=== PATIENT | female | born 1935 | race Hispanic/Latino ===

== ENCOUNTER 2017-03-01 11:25 | Day surgery (SDC) | payer MEDICARE ==
[2017-03-01] MEDS ORDERED: NACL BACTERIOSTATIC INFILTRATI ONE (12:36)
[2017-03-01] MEDS ORDERED: XYLOCAINE 1% 20 mL ONE (13:00)
[2017-03-01] MEDS ORDERED: ANCEF/STERILE WATER 2 GM/20 ML IV NR (13:00)
[2017-03-01] MEDS ORDERED: MARCAINE-EPI 0.5%-1:200,000 INFILTRATI ONE ×2 (13:01→14:38)
[2017-03-01] MEDS ORDERED: DECADRON ONE (13:15)
[2017-03-01] MEDS ORDERED: DIPRIVAN 10 MG/ML IV ONE ×2 (13:15→14:38)
[2017-03-01] MEDS ORDERED: SUBLIMAZE ONE (13:15)
[2017-03-01] MEDS ORDERED: ZOFRAN ONE (13:15)
[2017-03-01] MEDS ORDERED: XYLOCAINE MPF 2% ONE (13:15)
[2017-03-01] MEDS ORDERED: NACL 0.9% 1000 ML 1,000 ML ONE (13:23)
--- NOTE | 2017-03-01 13:28 | Anesthesia Consultation ---
Anesthesia Consult and Med Hx Date of service: 03/01/17 - Airway Anesthetic Teeth Evaluation: Dentures ROM Head & Neck: Adequate Mental/Hyoid Distance: Adequate Mallampati Class: Class II Intubation Access Assessment: Probably Good - Pulmonary Exam CTA: Yes - Cardiac Exam Cardiac Exam: RRR - Pre-Operative Health Status ASA Pre-Surgery Classification: ASA3 Proposed Anesthetic Plan: General - Pulmonary Hx Smoking: Yes (CIGARETTES 5 CIGS PD X 63 YRS) Hx Sleep Apnea: No - Cardiovascular System Hx Hypertension: Yes (FOR 20+ YRS, DR. 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
--- NOTE | 2017-03-01 13:29 | Anesthesia Day of Surgery ---
Anesthesia Day of Surgery - Day of Surgery Patient Examined: Yes Patient H&P Reviewed: Yes Patient is NPO: Yes Beta Blockers: Yes Cardiac Clearance: Yes
[2017-03-01] MEDS ORDERED: NACL 0.9% 1000 ML 1,000 ML IV SCH (13:30)
[2017-03-01] MEDS ORDERED: PEPCID IV NR (13:30)
[2017-03-01 13:54] LABS: Hematocrit 44.4 % (30.3-42.9); Hemoglobin 14.2 gm/dl (10.1-14.3); Mean Corpuscular HGB Conc 32 % (30-34); Mean Corpuscular Hemoglobin 31 pg (28-32); Mean Corpuscular Volume 97 fl (79-97); Red Cell Distribution Width 13.9 % (13.2-15.2); White Blood Count 8.8 K/mm3 (4.5-11.0)
[2017-03-01 14:01] LABS: Albumin 3.6 g/dL (3.9-5); Albumin/Globulin Ratio 1.1 %; BUN/Creatinine Ratio 21.53; Bilirubin,Total 0.7 mg/dL (0.1-1.2); Calcium 9.5 mg/dL (8.4-10.2); Chloride 101.4 mmol/L (98-107); Potassium 4.6 mmol/L (3.6-5.0); Total Protein 6.9 g/dL (6.3-8.2)
[2017-03-01] MEDS ORDERED: ePHEDrine SULFATE ONE (14:30)
[2017-03-01] MEDS ORDERED: XYLOCAINE 1% 20 mL INFILTRATI ONE (14:38)
[2017-03-01] MEDS ORDERED: NACL 0.9% IR ONE (14:38)
[2017-03-01 14:42] LABS: Platelet Count 89 K/mm3 (140-440)
[2017-03-01] MEDS ORDERED: NORCO 5/325 PO PRN (15:14)
--- NOTE | 2017-03-01 15:14 | Discharge Summary ---
Short Stay Discharge Plan Activity: advance as tolerated Diet: low fat Wound: per your surgeon's advice Follow up with: UMESH KHAN DO [Primary Care Provider] - 7 Days
--- NOTE | 2017-03-01 15:50 | Post Anesthesia Evaluation ---
- Post Anesthesia Evaluation Patient Participated: Yes Airway Patent: Yes Stable Respiratory Function: Yes Nausea/Vomiting: No Temp > 96.8F: Yes Pain Manageable: Yes Adequeate Hydration: Yes Anesthesia Complications: No
[2017-03-01 16:31] VITALS: BP 147/68
--- NOTE | 2017-03-01 18:49 | Admit Criteria Form ---
Admission Criteria Documentation: AMBULATORY SURGERY EXCEPTION CRITERIA Ambulatory Surgery Exception Criteria ( Place 'X' for any and all applicable criteria): Surgery or procedure performed on ambulatory basis may require inpatient stay for[A] ANY ONE of the following(1)(2)(3)(4)(5)(6)(7)(8)(9): [X] I. A preoperative situation, condition, or finding that warrants inpatient stay as indicated by ANY ONE of the following: [] a) Inpatient care needed because of severity of a disease or condition rather than the surgery (eg, severe cardiac or respiratory disease, severe infection) (15) (16 ) (17) (18) [] b) Emergent procedure (eg, angioplasty for acute ischemia)(19) [] c) Complex surgical approach or situation as indicated by ANY ONE of the following(3): [] i) Open approach needed instead of usual endoscopic, transcatheter, or other less invasive procedure [] ii) Difficult approach because of previous operation [] iii) Airway monitoring required after open neck procedures(20)(21) [] iv) Large mass requiring unusually extensive dissection [] v) Additional complicating feature requiring inpatient care (eg, drain management)(22(23): [X] d) Major surgery in a pt with high anesthetic risk as indicated by ANY ONE of the following (2)(3)(5)(7)(8): [X] i) ASA risk class III or higher (severe systemic disease impairing function) [D] [] ii) Advanced age (eg, older than 85 years)(14)(24) [] iii) Symptomatic heart failure(25) [] iv) Symptomatic asthma or COPD(8)(21) [] v) Morbid obesity with hemodynamic or respiratory problems(20)( 21)(26)(27) [] vi) Obstructive sleep apnea(20)(21) [] vii) Former premature infants who are younger than 60 weeks [] viii) High risk for severe postoperative abnormalities (eg, severe postoperative hypocalcemia after parathyroidectomy for severe hyperparathyroidism)(27)( 28) [] ix) Unstable angina(25) [] e) Drug-related risk requiring inpatient stay as indicated by ANY ONE of the following(5)(10)(14)(32)(33) [] i) Procedure requires discontinuing drugs or other therapy (eg , antiarrhythmic medication, antiseizure medication), which necessitates inpatient observation or treatment.(18)(31) [] ii) Major surgery and high risk drug use as indicated by ANY ONE of the following: [] 1) Active abuse of cocaine or similar drug [] 2) Monoamine oxidase inhibitor use [] 3) Other drug identified as posing risk [] f) Inadequate outpatient care situation as indicated by ANY ONE of the following(5)(10)(14)(32)(33) [] i) Patient lives remote from medical facility and procedure has urgent complication potential, and temporary nearby residence cannot be arranged [] ii) Patient will have postprocedure incapacitation and inadequate assistance at home, or alternative level of care cannot be arranged. [] iii) Patient will have long general anesthesia or procedure side effect resolution time, and competent person to stay with patient on first postoperative night at home or alternative level of care cannot be arranged. []iv) Other inadequate outpatient situation that cannot be handled by other means [] II. A perioperative event, condition, or finding that warrants inpatient stay as indicated by ANY ONE of the following (1)(2)(3): [] a) Inadequate physiologic recovery: cardiovascular, respiratory, or hemodynamic status not normal or near preoperative baseline(18) [] b) Hemodynamic instability [] c) Patient not alert with near normal or baseline mental status [] d) Temperature not normal or as expected and not appropriate for outpatient treatment of condition [] e) Ambulatory or appropriate activity level status not yet achieved post procedure [E](34)(35)(36) [] f) Operative site not appropriate (eg, unexpected or excessive drainage or bleeding) [] g) Postoperative effects not resolved or adequately managed (eg, significant pain or vomiting not appropriate for outpatient or next level of care)(10)(12) [] h) Complicating features requiring inpatient care as indicated by ANY ONE of the following(37): [] i) Severe complications of procedure (eg, bowel injury, airway compromise, vascular injury,severe hemorrhage) [] ii) Extensive (eg, dissection far beyond usual scope of procedure ) or prolonged (eg, 120 minutes beyond usual) surgery needed requiring inpatient postoperative care [] iii) Conversion to an open or complex procedure that requires inpatient care (eg, open vs laparoscopic cholecystectomy, abdominal vs vaginal hysterectomy)(38) [] iv) Comorbid condition or test result identified during or post procedure that requires inpatient care (7) [] v) Malignant hyperthermia(30) [] vi) Other complicating feature requiring inpatient care(22)(23) Inpatient stay may be needed until ALL of the following are present (1)(2)(3)(4) (5)(6)(10)(14)(33)(40): []a) Physiologic recovery: cardiovascular, respiratory, and hemodynamic status normal or near preoperative baseline []b) Hemodynamic stability []c) Patient alert, with near normal or baseline mental status []d) Temperature appropriate: patient afebrile or temperature appropriate for outpt treatment of condition []e) Activity level appropriate: ambulatory or appropriate activity level post procedure []f) Operative site appropriate as indicated by ALL of the following: []i) Site dry or with expected drainage []ii) Any blood noted is as expected for procedure. []g) Postoperative effects resolved or managed as indicated by ALL of the following: []i) Pain management appropriate for outpatient (or next level of) care(10) []ii) Minimal nausea and vomiting: if present, successfully treated with oral medication(12) []iii) Headache, dizziness, or drowsiness (if present) are mild. []h) Voiding status acceptable as indicated by ANY ONE of the following: []i) Voiding spontaneously []ii) No voiding but instructions given for follow-up in 6 to 8 hours []iii) Urinary catheter in place, and instructions given for follow-up []i) Complicating features requiring inpatient care manageable at a lower level of care(37) []j) Comorbid conditions manageable at a lower level of care(37) The original [employer] content created by [employer] has been revised. The portions of the content which have been revised are identified through the use of italic text or in bold, and [facility] [employer] has neither reviewed nor approved the modified material. All other unmodified content is copyright [employer]. Please see references footnoted in the original [employer] edition 2016 Admission Criteria Met: Yes
--- NOTE | 2017-03-01 20:52 | Operative Report ---
PREOPERATIVE DIAGNOSIS: Left breast mass. POSTOPERATIVE DIAGNOSIS: Left breast mass pending final pathology report, probably malignancy. Status post right mastectomy for the same many years back. This patient came to my office a week ago because of a mass that she felt in the left breast and this was seen also on mammogram, so she presents for the above. The examination showed ____ slim, elderly female. She is in no distress. She is very sociable. Head and neck negative. Chest clear. The breast showed surgical absence of the breast on the right side with a mass in the left breast about 2-3 o'clock axis. To me it is very hard, about 3 x 2 x 2 cm. Abdomen soft. The patient was thus taken to operating room where she underwent left breast biopsy and wants to wait on the result. I talked to her family we are going to see her sometime next week. We will go from there. JOB# [id number] BANDAR/CAMILA
--- NOTE | 2017-03-01 22:37 | Discharge Summary ---
HOSPITAL COURSE: This patient was seen in my office. She is an 81-year-old female. She came because of mass in the left breast. She gives a history of mastectomy on the right side many years ago for cancer. So she was thus admitted, where she underwent removal of the mass under general anesthesia. Postop, she did well. She was discharged home. I gave her a prescription for Vicodin for pain and to see me in about 2 weeks to see what we need to do. 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 JOB# [id number] BANDAR/CAMILA
--- NOTE | 2017-03-02 01:00 | Operative Report ---
PREOPERATIVE DIAGNOSIS: Mass, left breast. POSTOPERATIVE DIAGNOSIS: Mass, left breast. SURGERY: Removal of mass, left breast with a margin of about 0.5 to 1 cm. ANESTHESIA: General. BLOOD LOSS: Minimal. FINDINGS: The patient had a very firm mass. To me it is about 2 x 2 x 3 cm located at about 3-4 o'clock axis of the left breast. This was removed via an incision in usual fashion over the area of deeper subcutaneous tissue. I was able to go all around with use of cautery. I was well satisfied, we had good hemostasis. Then, the wound was closed in layers. I used 2-0 Vicryl for the deep and superficial breast tissue and 4-0 for the skin and a bandage. The patient was then transferred to the recovery room in good condition. JOB# [id number] BANDAR/CAMILA
== END 2017-03-01 16:25 | disposition home or self-care (01) ==
LOC: OR 11:25
PROVIDERS: ATTEND Surgery
DX: C50.912 Malignant neoplasm of unspecified site of left female breast (principal); I25.10 Atherosclerotic heart disease of native coronary artery without angina pectoris; I12.9 Hypertensive chronic kidney disease with stage 1 through stage 4 chronic kidney disease, or unspecified chronic kidney disease; N18.3 Chronic kidney disease, stage 3 (moderate); Z72.89 Other problems related to lifestyle; Z87.891 Personal history of nicotine dependence; Z85.3 Personal history of malignant neoplasm of breast
CPT/HCPCS: 19120; 36415; 80053; 85025; 88307; 88361; J0690; J2405; J2704; J3010; J7030; J1100

== ENCOUNTER 2017-04-09 11:05 | Inpatient (IN) | payer MEDICARE ==
[2017-04-04 11:58] LABS: Hematocrit 41.8 % (30.3-42.9); Mean Corpuscular HGB Conc 33 % (30-34); Mean Corpuscular Hemoglobin 31 pg (28-32); Mean Corpuscular Volume 93 fl (79-97); Platelet Count 125 K/mm3 (140-440); Red Blood Count 4.51 M/mm3 (3.65-5.03); Red Cell Distribution Width 13.5 % (13.2-15.2); White Blood Count 9.1 K/mm3 (4.5-11.0)
[2017-04-04 12:19] LABS: Albumin/Globulin Ratio 1.3 %; Bilirubin,Total 0.8 mg/dL (0.1-1.2); Calcium 9.5 mg/dL (8.4-10.2); Chloride 101.4 mmol/L (98-107); Potassium 4.6 mmol/L (3.6-5.0)
--- NOTE | 2017-04-05 12:00 | Admit Criteria Form ---
Admission Criteria Documentation: AMBULATORY SURGERY EXCEPTION CRITERIA Ambulatory Surgery Exception Criteria ( Place 'X' for any and all applicable criteria): Surgery or procedure performed on ambulatory basis may require inpatient stay for[A] ANY ONE of the following(1)(2)(3)(4)(5)(6)(7)(8)(9): [X] I. A preoperative situation, condition, or finding that warrants inpatient stay as indicated by ANY ONE of the following: [X] a) Inpatient care needed because of severity of a disease or condition rather than the surgery (eg, severe cardiac or respiratory disease, severe infection) (15) (16 ) (17) (18) [] b) Emergent procedure (eg, angioplasty for acute ischemia)(19) [] c) Complex surgical approach or situation as indicated by ANY ONE of the following(3): [] i) Open approach needed instead of usual endoscopic, transcatheter, or other less invasive procedure [] ii) Difficult approach because of previous operation [] iii) Airway monitoring required after open neck procedures(20)(21) [] iv) Large mass requiring unusually extensive dissection [] v) Additional complicating feature requiring inpatient care (eg, drain management)(22(23): [] d) Major surgery in a pt with high anesthetic risk as indicated by ANY ONE of the following (2)(3)(5)(7)(8): [] i) ASA risk class III or higher (severe systemic disease impairing function) [D] [] ii) Advanced age (eg, older than 85 years)(14)(24) [] iii) Symptomatic heart failure(25) [] iv) Symptomatic asthma or COPD(8)(21) [] v) Morbid obesity with hemodynamic or respiratory problems(20)( 21)(26)(27) [] vi) Obstructive sleep apnea(20)(21) [] vii) Former premature infants who are younger than 60 weeks [] viii) High risk for severe postoperative abnormalities (eg, severe postoperative hypocalcemia after parathyroidectomy for severe hyperparathyroidism)(27)( 28) [] ix) Unstable angina(25) [] e) Drug-related risk requiring inpatient stay as indicated by ANY ONE of the following(5)(10)(14)(32)(33) [] i) Procedure requires discontinuing drugs or other therapy (eg , antiarrhythmic medication, antiseizure medication), which necessitates inpatient observation or treatment.(18)(31) [] ii) Major surgery and high risk drug use as indicated by ANY ONE of the following: [] 1) Active abuse of cocaine or similar drug [] 2) Monoamine oxidase inhibitor use [] 3) Other drug identified as posing risk [] f) Inadequate outpatient care situation as indicated by ANY ONE of the following(5)(10)(14)(32)(33) [] i) Patient lives remote from medical facility and procedure has urgent complication potential, and temporary nearby residence cannot be arranged [] ii) Patient will have postprocedure incapacitation and inadequate assistance at home, or alternative level of care cannot be arranged. [] iii) Patient will have long general anesthesia or procedure side effect resolution time, and competent person to stay with patient on first postoperative night at home or alternative level of care cannot be arranged. []iv) Other inadequate outpatient situation that cannot be handled by other means [] II. A perioperative event, condition, or finding that warrants inpatient stay as indicated by ANY ONE of the following (1)(2)(3): [] a) Inadequate physiologic recovery: cardiovascular, respiratory, or hemodynamic status not normal or near preoperative baseline(18) [] b) Hemodynamic instability [] c) Patient not alert with near normal or baseline mental status [] d) Temperature not normal or as expected and not appropriate for outpatient treatment of condition [] e) Ambulatory or appropriate activity level status not yet achieved post procedure [E](34)(35)(36) [] f) Operative site not appropriate (eg, unexpected or excessive drainage or bleeding) [] g) Postoperative effects not resolved or adequately managed (eg, significant pain or vomiting not appropriate for outpatient or next level of care)(10)(12) [] h) Complicating features requiring inpatient care as indicated by ANY ONE of the following(37): [] i) Severe complications of procedure (eg, bowel injury, airway compromise, vascular injury,severe hemorrhage) [] ii) Extensive (eg, dissection far beyond usual scope of procedure ) or prolonged (eg, 120 minutes beyond usual) surgery needed requiring inpatient postoperative care [] iii) Conversion to an open or complex procedure that requires inpatient care (eg, open vs laparoscopic cholecystectomy, abdominal vs vaginal hysterectomy)(38) [] iv) Comorbid condition or test result identified during or post procedure that requires inpatient care (7) [] v) Malignant hyperthermia(30) [] vi) Other complicating feature requiring inpatient care(22)(23) Inpatient stay may be needed until ALL of the following are present (1)(2)(3)(4) (5)(6)(10)(14)(33)(40): []a) Physiologic recovery: cardiovascular, respiratory, and hemodynamic status normal or near preoperative baseline []b) Hemodynamic stability []c) Patient alert, with near normal or baseline mental status []d) Temperature appropriate: patient afebrile or temperature appropriate for outpt treatment of condition []e) Activity level appropriate: ambulatory or appropriate activity level post procedure []f) Operative site appropriate as indicated by ALL of the following: []i) Site dry or with expected drainage []ii) Any blood noted is as expected for procedure. []g) Postoperative effects resolved or managed as indicated by ALL of the following: []i) Pain management appropriate for outpatient (or next level of) care(10) []ii) Minimal nausea and vomiting: if present, successfully treated with oral medication(12) []iii) Headache, dizziness, or drowsiness (if present) are mild. []h) Voiding status acceptable as indicated by ANY ONE of the following: []i) Voiding spontaneously []ii) No voiding but instructions given for follow-up in 6 to 8 hours []iii) Urinary catheter in place, and instructions given for follow-up []i) Complicating features requiring inpatient care manageable at a lower level of care(37) []j) Comorbid conditions manageable at a lower level of care(37) The original [employer] content created by [employer] has been revised. The portions of the content which have been revised are identified through the use of italic text or in bold, and [employer] has neither reviewed nor approved the modified material. All other unmodified content is copyright [employer]. Please see references footnoted in the original [employer] edition 2016 Admission Criteria Met: Yes
[~2017-04-09 11:05] MED LIST: DECADRON ONE; DILAUDID ONE; DIPRIVAN 10 MG/ML IV ONE; SUBLIMAZE ONE; XYLOCAINE MPF 2% ONE; ZOFRAN ONE
[2017-04-09] MEDS ORDERED: ZEMURON IV ONE (11:45)
[2017-04-09] MEDS ORDERED: SUBLIMAZE IV PRN (12:02)
[2017-04-09] MEDS ORDERED: NACL 0.9% 1000 ML 1,000 ML ONE ×2 (12:05→14:49)
[2017-04-09] MEDS ORDERED: MARCAINE-EPI/PF 0.5%-1:200,000 INFILTRATI ONE (12:40)
[2017-04-09] MEDS ORDERED: DECADRON ONE ×2 (12:41→14:39)
[2017-04-09] MEDS ORDERED: MARCAINE-EPI/PF 0.25%-1:200,000 INFILTRATI ONE (12:41)
[2017-04-09] MEDS ORDERED: NACL 0.9% 1000 ML 1,000 ML IV SCH (13:00)
[2017-04-09] MEDS ORDERED: ANCEF/STERILE WATER 2 GM/20 ML IV NR (13:00)
[2017-04-09] MEDS ORDERED: VERSED IV NR (13:00)
[2017-04-09] MEDS ORDERED: PEPCID IV NR (13:00)
--- NOTE | 2017-04-09 13:05 | Anesthesia Consultation ---
Anesthesia Consult and Med Hx - Airway Anesthetic Teeth Evaluation: Dentures (upper dentures; loose tooth bottom front) ROM Head & Neck: Adequate Mental/Hyoid Distance: Adequate Mallampati Class: Class III Intubation Access Assessment: Possibly Difficult - Pulmonary Exam CTA: Yes - Cardiac Exam Cardiac Exam: RRR - Pre-Operative Health Status ASA Pre-Surgery Classification: ASA3 Proposed Anesthetic Plan: General - Pulmonary Hx Smoking: Yes (CIGARETTES 5 CIGS PD X 63 YRS) Hx Sleep Apnea: No - Cardiovascular System Hx Hypertension: Yes (FOR 20+ YRS, DR. 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
--- NOTE | 2017-04-09 13:06 | Anesthesia Day of Surgery ---
Anesthesia Day of Surgery - Day of Surgery Patient Examined: Yes Patient H&P Reviewed: Yes Patient is NPO: Yes Beta Blockers: Yes (takes at nite - took last night)
[2017-04-09] MEDS ORDERED: AMIDATE IV ONE (13:25)
[2017-04-09] MEDS ORDERED: NEO SYNEPHRINE ONE (14:04)
[2017-04-09] MEDS ORDERED: NACL 0.9% IR ONE (14:16)
[2017-04-09] MEDS ORDERED: ZOFRAN ONE (14:39)
[2017-04-09] MEDS ORDERED: DILAUDID IV PRN (14:54)
[2017-04-09] MEDS ORDERED: ZOFRAN IV PRN (15:00)
[2017-04-09] MEDS ORDERED: VERSED ONE (15:19)
--- NOTE | 2017-04-09 15:42 | Post Anesthesia Evaluation ---
- Post Anesthesia Evaluation Patient Participated: Yes Airway Patent: Yes Stable Respiratory Function: Yes Nausea/Vomiting: No Temp > 96.8F: Yes Pain Manageable: Yes Adequeate Hydration: Yes Anesthesia Complications: No Block Receding Appropriately: Not Applicable Patient on Ventilator: No
[2017-04-09] MEDS: D5W/0.45% NACL/KCL 20 MEQ 20 MEQ/1,000 ML BAG IV SCH (20:06)
[2017-04-09] MEDS: ANCEF/NS 1 GM/50 ML 1 GM/50 ML BAG IV SCH (21:06)
[2017-04-09] MEDS ORDERED: HEPARIN SUB-Q SCH (22:00)
[2017-04-09] MEDS ORDERED: AMBIEN PO PRN (22:05)
--- NOTE | 2017-04-10 01:07 | Operative Report ---
PREOPERATIVE DIAGNOSIS: Adenocarcinoma of the breast on the left side, status post cancer on the right side with mastectomy. POSTOPERATIVE DIAGNOSIS: Adenocarcinoma of the breast on the left side, status post cancer on the right side with mastectomy. SURGERY: Left modified radical mastectomy with lymph node dissection. The lymph nodes in the axilla looked suspicious to me that is why I did the lymph node dissection. ANESTHESIA: General. BLOOD LOSS: Minimal. FINDINGS: The patient had multiple lymph nodes in the axillary area. The largest measured about 2 x 2 cm, smallest about 20 x 1 cm and rest of the examination did not reveal anything specific. This patient had a biopsy for a mass in the left breast about 3 weeks ago. DESCRIPTION OF PROCEDURE: With the patient in supine position, prepped and draped in the usual fashion, I made a spindle-shaped incision around the areola on the left breast from the angle of the axilla all the way into the medial inferior aspect and then 2 flaps were raised of skin and small ____ all around and then the breast was removed in toto using electrocautery, including the fascia on the left pectoralis muscle area. This was done all the way superiorly and into the axilla. I could feel multiple fairly firm lymph nodes in the area. These were dissected free all the way superiorly. One lymph node was stuck to the wall. I took it as a separate specimen. I was very much satisfied. I left a drain, Emmanuel-Li, in the left axilla through a small stab wound incision inferiorly and then the wound was closed interruptedly using for that purpose 3-0 Vicryl and 4-0 for the skin and Steri-Strips. The patient was then transferred to the Recovery Room in good condition after applying a bandage in the usual fashion. I talked to the family, going to keep her in the hospital till tomorrow may be, waiting ____ pathologist to come out. JOB# [id number] BANDAR/CAMILA
[2017-04-10] MEDS: ANCEF/NS 1 GM/50 ML 1 GM/50 ML BAG IV SCH ×2 (04:02→12:29)
[2017-04-10] MEDS: D5W/0.45% NACL/KCL 20 MEQ 20 MEQ/1,000 ML BAG IV SCH (04:05)
[2017-04-10 12:30] VITALS: BP 146/60
--- NOTE | 2017-04-10 19:43 | Discharge Summary ---
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 This patient had cancer on the right breast many years back. She had a lump on the left side at this time and biopsy showed the above. PHYSICAL EXAMINATION: GENERAL: Showed a well-preserved white female. She is in no distress. She is very sociable. HEAD AND NECK: Negative. CHEST: Clear. HEART: Sounds normal. BREASTS: Showed surgical absence of the right breast. The left breast showed scar from recent surgery. ABDOMEN: Soft and benign. HOSPITAL COURSE: The patient was thus admitted where she underwent left modified radical mastectomy. I did feel some lymph nodes in the axillary area. This prompted me to take the entire lymph nodes in the axilla. She did well. Postop, she was doing fine. The drainage is very minimal. At this point, I believe she may go home to see me in office in about 10 days, to call me definitely in 2 days to tell me how she is doing. She may take the drain herself, to call me otherwise. JOB# [id number] BANDAR/CAMILA
--- NOTE | 2017-04-11 17:11 | Progress Note ---
Subjective Date of service: 04/11/17 Interval history: 1st POD after bilateral mastectomy Patient is in the bed, comfortable. Pain is well controlled with pain meds. Ambulated well. No nausea or vomiting. No anesthesia complications Objective - Labs CBC & Chem 7: 04/04/17 11:41 04/04/17 11:26
== END 2017-04-10 15:00 | disposition home or self-care (01) | DRG 580 ==
LOC: OR 11:05 → 2B-SURG 15:15 → OBSVTOIN 04-10 09:13
PROVIDERS: ADMIT Surgery; ATTEND Surgery
PROC: 0HTU0ZZ Resection of Left Breast, Open Approach (ICD-10-PCS; principal; 2017-04-09)
PROC: 07B60ZX Excision of Left Axillary Lymphatic, Open Approach, Diagnostic (ICD-10-PCS; 2017-04-09)
DX: C50.912 Malignant neoplasm of unspecified site of left female breast (principal); I50.32 Chronic diastolic (congestive) heart failure; I13.0 Hypertensive heart and chronic kidney disease with heart failure and stage 1 through stage 4 chronic kidney disease, or unspecified chronic kidney disease; Z85.3 Personal history of malignant neoplasm of breast; F17.200 Nicotine dependence, unspecified, uncomplicated; I25.10 Atherosclerotic heart disease of native coronary artery without angina pectoris; N18.3 Chronic kidney disease, stage 3 (moderate); Z72.89 Other problems related to lifestyle; Z90.11 Acquired absence of right breast and nipple
CPT/HCPCS: 36415; 80053; 85027; 88305; 88307; 88309; 94760; G0378; J0690; J1100; J1170; J1644; J2250; J2370; J2405; J2704; J3010; J7030

== ENCOUNTER 2017-04-26 09:15 | Emergency (ER) | payer MEDICARE ==
--- NOTE | 2017-04-26 14:30 | Emergency Department Report ---
HPI - HPI HPI: The patient is a 81-year-old female 3 weeks status post left breast mastectomy, who presents for evaluation of swelling to the left breast. Patient states that her swelling occurred one day ago, has been constant since, moderate in severity, associated with minimal mild left-sided chest pain, tight in quality, exacerbated with movement, also constant for the past one day. The patient denies fever, trauma to the chest, cough, dyspnea, syncope, hemoptysis, unilateral leg swelling, recent immobilization, history of DVT or PE, recent cancer, blood thinner use. 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 BRINK- [employer]) Hx HIV: No - Surgical History Past Surgical History?: Yes Additional Surgical History: Breast surgery - Social History Smoking Status: Current Every Day Smoker Substance Use Type: Alcohol <LIYAH LAWRENCE - Last Filed: 04/26/17 16:38> <DEIRDRE DOMINGUEZ - Last Filed: 04/26/17 17:09> - Medications Home Medications: Home Medications Medication Instructions Recorded Confirmed Last Taken Type Aspirin [Adult Low Dose Aspirin EC] 81 mg PO QDAY 02/28/17 04/03/17 04/02/17 History Atenolol [Tenormin] 25 mg PO DAILY 02/28/17 04/09/17 04/08/17 20:00 History Atorvastatin Calcium [Lipitor] 20 mg PO QHS 02/28/17 04/09/17 04/08/17 20:00 History Ca/D3/Mag Ox/Zinc/Wood Stainer/Oziel/Bor 1 each PO QDAY 02/28/17 04/09/17 04/08/17 09:00 History [Calcium 600+D3 Plus Caplet] Cholecalciferol Vit D3 [Vitamin D3] 1,000 unit PO QDAY 02/28/17 04/09/17 09:00 History Multivitamin Tab [Multiple Vitamin 1 each PO QDAY 02/28/17 04/09/17 04/08/17 09: 00 History TAB (Theragran)] Ramipril 10 mg PO QDAY 02/28/17 04/09/17 04/08/17 09:00 History HYDROcodone/ACETAMINOPHEN [Vicodin 1 tab PO Q6HR PRN #20 tablet 03/01/17 Unknown Rx HP 10-300 mg TAB] Letrozole (Nf) [Femara (Nf)] 2.5 mg PO QDAY 04/04/17 04/09/17 04/09/17 06:00 History ED Review of Systems ROS: Stated complaint: LT BREAST SWELLING Other details as noted in HPI Constitutional: denies: fever ENT: denies: throat or neck pain Respiratory: denies: cough, shortness of breath Cardiovascular: denies: chest pain Endocrine: denies unexplained weight loss or gain Gastrointestinal: denies: abdominal pain, nausea Genitourinary: denies: dysuria Musculoskeletal: reports left chest wall swelling denies: leg swelling Skin: denies: rash Neurological: denies: headache Hematological/Lymphatic: denies: easy bleeding or easy bruising Psych: denies sadness or hopelessness <LIYAH LAWRENCE - Last Filed: 04/26/17 16:38> ROS: Stated complaint: LT BREAST SWELLING Other details as noted in HPI <DEIRDRE DOMINGUEZ - Last Filed: 04/26/17 17:09> Physical Exam - Physical Exam Vital Signs: Vital Signs 04/26/17 09:28 Temperature 98.6 F Pulse Rate 78 Respiratory 20 Rate Blood Pressure 160/78 O2 Sat by Pulse 100 Oximetry Physical Exam: General: well-nourished, well-developed, no acute distress Head: Normocephalic, atraumatic Eyes: normal sclera ENT: Mucous membranes are pink and moist Neck: trachea midline, neck supple, No neck stiffness, no cervical adenopathy Respiratory: Breath sounds equal bilaterally, no wheezing, rales, or rhonchi Cardio: S1 and S2 present, no murmurs, rubs, gallops, capillary refill is brisk Abdomen: Normoactive bowel sounds, soft abdomen, no rigidity, no guarding or rebound tenderness Chest WALL/Back: Swelling and tenderness to palpation of the left lateral chest wall is present, mild ecchymosis present as well, no crepitus, erythema, or fluctuance, no sign of abscess or cellulitis, no CVA tenderness with percussion Musc: No pitting edema Skin: No rash Neuro: no facial drooping, normal speech Psych: Normal affect <LIYAH LAWRENCE P - Last Filed: 04/26/17 16:38> - Physical Exam Vital Signs: Vital Signs 04/26/17 04/26/17 04/26/17 09:28 15:58 16:02 Temperature 98.6 F Pulse Rate 78 Pulse Rate [ Intra-Procedure ] Pulse Rate [ Post-Procedure] Pulse Rate [Pre 60 -Procedure] Respiratory 20 18 Rate Respiratory Rate [Intra- Procedure] Respiratory Rate [Post- Procedure] Respiratory 18 Rate [Pre- Procedure] Blood Pressure 160/78 Blood Pressure [Intra- Procedure] Blood Pressure [Post-Procedure ] Blood Pressure 107/60 [Pre-Procedure] O2 Sat by Pulse 100 Oximetry O2 Sat by Pulse Oximetry [ Intra-Procedure ] O2 Sat by Pulse Oximetry [Post -Procedure] O2 Sat by Pulse 99 Oximetry [Pre- Procedure] 04/26/17 04/26/17 04/26/17 16:03 16:09 16:12 Temperature Pulse Rate Pulse Rate [ 60 61 61 Intra-Procedure ] Pulse Rate [ Post-Procedure] Pulse Rate [Pre 60 -Procedure] Respiratory Rate Respiratory 16 16 16 Rate [Intra- Procedure] Respiratory Rate [Post- Procedure] Respiratory 18 Rate [Pre- Procedure] Blood Pressure Blood Pressure 98/42 110/39 105/45 [Intra- Procedure] Blood Pressure [Post-Procedure ] Blood Pressure 107/60 [Pre-Procedure] O2 Sat by Pulse Oximetry O2 Sat by Pulse 98 98 99 Oximetry [ Intra-Procedure ] O2 Sat by Pulse Oximetry [Post -Procedure] O2 Sat by Pulse 99 Oximetry [Pre- Procedure] 04/26/17 04/26/17 04/26/17 16:15 16:21 16:24 Temperature Pulse Rate Pulse Rate [ 61 68 Intra-Procedure ] Pulse Rate [ 63 Post-Procedure] Pulse Rate [Pre -Procedure] Respiratory Rate Respiratory 16 18 Rate [Intra- Procedure] Respiratory 18 Rate [Post- Procedure] Respiratory Rate [Pre- Procedure] Blood Pressure Blood Pressure 139/55 125/52 [Intra- Procedure] Blood Pressure 135/67 [Post-Procedure ] Blood Pressure [Pre-Procedure] O2 Sat by Pulse Oximetry O2 Sat by Pulse 99 99 Oximetry [ Intra-Procedure ] O2 Sat by Pulse 99 Oximetry [Post -Procedure] O2 Sat by Pulse Oximetry [Pre- Procedure] <DEIRDRE DOMINGUEZ C - Last Filed: 04/26/17 17:09> ED Course Vital Signs 04/26/17 09:28 Temperature 98.6 F Pulse Rate 78 Respiratory 20 Rate Blood Pressure 160/78 O2 Sat by Pulse 100 Oximetry <LIYAH LAWRENCE P - Last Filed: 04/26/17 16:38> Vital Signs 04/26/17 04/26/17 04/26/17 09:28 15:58 16:02 Temperature 98.6 F Pulse Rate 78 Pulse Rate [ Intra-Procedure ] Pulse Rate [ Post-Procedure] Pulse Rate [Pre 60 -Procedure] Respiratory 20 18 Rate Respiratory Rate [Intra- Procedure] Respiratory Rate [Post- Procedure] Respiratory 18 Rate [Pre- Procedure] Blood Pressure 160/78 Blood Pressure [Intra- Procedure] Blood Pressure [Post-Procedure ] Blood Pressure 107/60 [Pre-Procedure] O2 Sat by Pulse 100 Oximetry O2 Sat by Pulse Oximetry [ Intra-Procedure ] O2 Sat by Pulse Oximetry [Post -Procedure] O2 Sat by Pulse 99 Oximetry [Pre- Procedure] 04/26/17 04/26/17 04/26/17 16:03 16:09 16:12 Temperature Pulse Rate Pulse Rate [ 60 61 61 Intra-Procedure ] Pulse Rate [ Post-Procedure] Pulse Rate [Pre 60 -Procedure] Respiratory Rate Respiratory 16 16 16 Rate [Intra- Procedure] Respiratory Rate [Post- Procedure] Respiratory 18 Rate [Pre- Procedure] Blood Pressure Blood Pressure 98/42 110/39 105/45 [Intra- Procedure] Blood Pressure [Post-Procedure ] Blood Pressure 107/60 [Pre-Procedure] O2 Sat by Pulse Oximetry O2 Sat by Pulse 98 98 99 Oximetry [ Intra-Procedure ] O2 Sat by Pulse Oximetry [Post -Procedure] O2 Sat by Pulse 99 Oximetry [Pre- Procedure] 04/26/17 04/26/17 04/26/17 16:15 16:21 16:24 Temperature Pulse Rate Pulse Rate [ 61 68 Intra-Procedure ] Pulse Rate [ 63 Post-Procedure] Pulse Rate [Pre -Procedure] Respiratory Rate Respiratory 16 18 Rate [Intra- Procedure] Respiratory 18 Rate [Post- Procedure] Respiratory Rate [Pre- Procedure] Blood Pressure Blood Pressure 139/55 125/52 [Intra- Procedure] Blood Pressure 135/67 [Post-Procedure ] Blood Pressure [Pre-Procedure] O2 Sat by Pulse Oximetry O2 Sat by Pulse 99 99 Oximetry [ Intra-Procedure ] O2 Sat by Pulse 99 Oximetry [Post -Procedure] O2 Sat by Pulse Oximetry [Pre- Procedure] <DEIRDRE DOMINGUEZ - Last Filed: 04/26/17 17:09> ED Medical Decision Making - Lab Data Result diagrams: 04/26/17 15:29 04/26/17 15:29 - Medical Decision Making The patient was seen and examined by myself. The patient is placed on a threat monitoring analyst and continuous pulse ox. On initial evaluation, the patient was found to be in no distress. Evaluation orders were placed. The patient is given IV fentanyl for her pain. Dr. Greene presents to the ER and evaluates the patient. Lab results were unremarkable. CT scan the chest is ordered. The on-call interventional radiologist Dr. Castanon contacted and he agrees to place CT- guided drainage catheter to left breast seroma. The patient signed out to the oncoming 4 PM ED physician who agrees to arrange ultimate disposition. <LIYAH LAWRENCE - Last Filed: 04/26/17 16:38> - Lab Data Result diagrams: 04/26/17 15:29 04/26/17 15:29 - Medical Decision Making 5:03pm She has returned from IR, drain has been placed, with brown serous fluid in bag. Patient agrees she is stable to discharge home and follow-up with her general surgeon. <DEIRDRE DOMINGUEZ - Last Filed: 04/26/17 17:09> Critical care attestation.: If time is entered above; I have spent that time in minutes in the direct care of this critically ill patient, excluding procedure time. <LIYAH LAWRENCE - Last Filed: 04/26/17 16:38> Critical Care Time: No Critical care attestation.: If time is entered above; I have spent that time in minutes in the direct care of this critically ill patient, excluding procedure time. <DEIRDRE DOMINGUEZ - Last Filed: 04/26/17 17:09> ED Disposition Is pt being admited?: No Does the pt Need Aspirin: No Time of Disposition: 14:30 <LIYAH LAWRENCE - Last Filed: 04/26/17 16:38> Is pt being admited?: No Does the pt Need Aspirin: No <DEIRDRE DOMINGUEZ - Last Filed: 04/26/17 17:09> Clinical Impression: Seroma Disposition: DC-01 TO HOME OR SELFCARE Condition: Stable Instructions: Chest Pain (ED) Referrals: UMESH KHAN DO [Primary Care Provider] - 24 Hours NILSON MALONE MD [Staff Physician] - 2-3 Days
--- NOTE | 2017-04-26 15:40 | Event Note ---
Date: 04/26/17 This is an 81-year-old female who underwent left mastectomy for metastatic breast carcinoma approximately 2 weeks ago. She has since developed a fluid collection in the region, presumably a seroma. No fevers or chills of been reported. Image guided drainage was requested by the operating surgeon. I saw and examined the patient and explained the details of the procedure. Informed consent was signed
[2017-04-26] MEDS ORDERED: VERSED IV ONE (15:49)
[2017-04-26] MEDS ORDERED: SUBLIMAZE ONE (15:50)
[2017-04-26 15:55] LABS: BUN/Creatinine Ratio 21.81; Calcium 9.2 mg/dL (8.4-10.2); Chloride 100.9 mmol/L (98-107); Potassium 4.6 mmol/L (3.6-5.0)
[2017-04-26] MEDS: VERSED IV NR ×2 (16:02→16:36)
[2017-04-26] MEDS: SUBLIMAZE IV ONE (16:02)
[2017-04-26 16:03] LABS: Basophils % (Auto) 0.4 % (0.0-1.8); Eosinophils % (Auto) 2.8 % (0.0-4.3); Hemoglobin 11.2 gm/dl (10.1-14.3); Mean Corpuscular HGB Conc 32 % (30-34); Mean Corpuscular Hemoglobin 31 pg (28-32); Mean Corpuscular Volume 97 fl (79-97); Platelet Count 180 K/mm3 (140-440); Red Blood Count 3.61 M/mm3 (3.65-5.03); Red Cell Distribution Width 15.7 % (13.2-15.2); White Blood Count 9.6 K/mm3 (4.5-11.0)
--- NOTE | 2017-04-26 16:32 | Operative Report ---
Operative Report Operative Report: Procedure: CT-guided drainage of a left mastectomy bed seroma Date of Procedure: 04/26/2017 History/Indication: 81-year-old female with development of a postoperative seroma in a left mastectomy bed Physician: Kayla Mcfadden MD Technique/Procedural Details: The patient was placed in the supine position on the CT scanner. A marking grid was used to pick an appropriate site for drain placement. After limited imaging of the area of interest, the patient was prepped and draped in the usual sterile fashion. A timeout was performed. Local anesthetic was administered. An 18-gauge trocar needle was advanced into the seroma under CT guidance. This was exchanged for a 6 [place] tissue dilator over an Amplatz wire. Repeat imaging was performed. A tissue dilator was then exchanged for an 8 [place] all-purpose drainage catheter. The locking loop was formed, fluid was aspirated, and final imaging to confirm position was performed. The drain was connected to a Uracil drainage bag. Two 2-0 silk sutures were used to secure the drain to the skin. Sterile dressings were placed. The patient was instructed regarding bag usage. She was then transported back to the emergency room in good condition. Discussion: Limited CT imaging of the left chest shows a large fluid density collection in the anterior left upper chest wall, at the site of a mastectomy. The fluid was thin and brown in color, without debris or evidence of purulence. Approximately 200 mL of fluid was promptly drained into the newly placed a bag. Specimen: None EBL: <5 cc
[2017-04-26 18:26] VITALS: BP 121/58
== END 2017-04-26 18:27 | disposition home or self-care (01) ==
LOC: ED 09:15
DX: N64.89 Other specified disorders of breast (principal); I50.9 Heart failure, unspecified; I12.9 Hypertensive chronic kidney disease with stage 1 through stage 4 chronic kidney disease, or unspecified chronic kidney disease; N18.3 Chronic kidney disease, stage 3 (moderate); F17.200 Nicotine dependence, unspecified, uncomplicated; Z79.82 Long term (current) use of aspirin
CPT/HCPCS: 10160; 36415; 77012; 80048; 85025; 96374; 99284; C1769; J2250; J3010